=== PATIENT | male | born 1980 | race African-American/Black ===

== ENCOUNTER 2017-11-19 11:22 | Emergency (ER) | payer OTHER ==
[~2017-11-19] VITALS: Ht 182.9 cm; Wt 74.8 kg
--- NOTE | ~2017-11-19 | EKG ---
[place] [address] [address] [facility] [place] [address] ELECTROCARDIOGRAM REPORT Name: TRACEY RESENDIZ [facility] [id number] Admission: 11/19/17 Attend Phys: Discharge: 11/19/17 Date of : 78 Report #: [id number] THIS REPORT FOR: //name// [facility] ED Test Date: 2017-11-19 Test Time: 11:27:11 Pat Name: TRACEY RESENDIZ Department: Room: Gender: M [employer] Sales Person: [facility] : 1980 Requested By: Luis Hendrix Order Number: [id number] MD: Philip Bal Measurements Intervals [place] Rate: 72 P: 57 OR: 172 QRS: 42 QRSD: 87 T: 56 QT: 397 QTc: 435 Interpretive Statements Sinus rhythm ST elev, probable normal early repol pattern No previous ECG available for comparison Electronically Signed On 11-21-2017 13:37:00 CDT by Philip Bal [email or web address] <ELECTRONICALLY SIGNED> By: Philip Bal MD, [facility] 11/21/17 [id number] Philip Bal MD, FACC /EPI
[~2017-11-19 11:22] MED LIST: DOXYCYCLINE 10100 MG PO; FLEXERIL PO; LORTAB 5 MG/5001 TA1 PO
[2017-11-19] MEDS ORDERED: NORFLEX100 MG PO (12:58)
[2017-11-19] MEDS ORDERED: NAPROSYN500 MG PO (12:58)
== END 2017-11-19 13:34 | disposition home or self-care (01) ==
LOC: ER 11:22
DX: S39.012A Strain of muscle, fascia and tendon of lower back, initial encounter (principal); M94.0 Chondrocostal junction syndrome [Tietze]; F17.210 Nicotine dependence, cigarettes, uncomplicated; V89.2XXA Person injured in unspecified motor-vehicle accident, traffic, initial encounter; Y93.89 Activity, other specified; Y92.89 Other specified places as the place of occurrence of the external cause; Y99.8 Other external cause status